=== PATIENT | female | born 1945 | race Caucasian/White ===

== ENCOUNTER 2018-11-03 16:59 | Emergency (ER) | payer MEDICARE ==
[2018-11-03 17:27] VITALS: BP 128/64
--- NOTE | 2018-11-03 17:45 | UC ---
Lower Extremity/Ankle HPI - HPI Summary HPI Summary: 73-year-old woman comes in with a chief complaint of left foot pain. Last evening she accidentally struck her foot on a solid object. Pain is primarily in the second third and fourth toes and the distal second third fourth metatarsals. Pain is worse with palpation and weightbearing's. Better with rest. No weakness or numbness no skin break. - History of Current Complaint Chief Complaint: UCLowerExtremity Stated Complaint: LEFT FOOT INJURY Time Seen by Provider: 11/03/18 17:19 Pain Intensity: 6 - Allergies/Home Medications Allergies/Adverse Reactions: Allergies Allergy/AdvReac Type Severity Reaction Status Date / Time Sulfa (Sulfonamide Allergy Hives/Diff. Verified 11/03/18 17:27 Antibiotics) Breathing/I tching Home Medications: Home Medications NK [No Home Medications Reported] 11/03/18 [History Confirmed 11/03/18] PMH/Surg Hx/FS Hx/Imm Hx Previously Healthy: Yes - Surgical History Surgical History: None Other Surgical History: LEFT FOOT OPEN FXR AND SURGICAL REPAIR A CHILD - Family History Known Family History: Positive: Non-Contributory - Social History Alcohol Use: Rare Substance Use Type: None Smoking Status (MU): Heavy Every Day Tobacco Smoker Type: Cigarettes Have You Smoked in the Last Year: Yes Household Exposure Type: Cigarettes Review of Systems All Other Systems Reviewed And Are Negative: Yes Constitutional: Positive: Negative Skin: Positive: Bruising - LEFT FOOT Eyes: Positive: Negative ENT: Positive: Negative Respiratory: Positive: Negative Cardiovascular: Positive: Negative Gastrointestinal: Positive: Negative Motor: Positive: Negative Neurovascular: Positive: Negative Musculoskeletal: Positive: Other: - SEE HPI Neurological: Positive: Negative Psychological: Positive: Negative Is Patient Immunocompromised?: No Physical Exam Triage Information Reviewed: Yes Appearance: Well-Appearing, No Pain Distress, Well-Nourished Vital Signs: Initial Vital Signs Temp 97.9 F 11/03/18 17:20 Pulse 75 11/03/18 17:20 Resp 16 11/03/18 17:20 BP 128/64 11/03/18 17:20 Pulse Ox 97 11/03/18 17:20 Vital Signs Reviewed: Yes Eye Exam: Normal Eyes: Positive: Conjunctiva Clear Neck: Positive: Supple Respiratory: Positive: No respiratory distress Musculoskeletal: Positive: Other: - Distal left foot is tender to palpation over the second third fourth toes and metatarsals. There is some ecchymosis. Normal capillary refill normal sensation and normal dorsalis pedis pulse. Ankle is full range of motion and nontender. Neurological: Positive: Alert, Muscle Tone Normal Psychological Exam: Normal Psychological: Positive: Normal Response To Family, Age Appropriate Behavior Skin: Positive: Other - Ecchymosis distal left foot on the dorsum Lower Extremity Course/Dx - Course Course Of Treatment: Patient Name: STEVE VELÁSQUEZ Medical Record#: [id number] Ordering Physician: Joe Allen MD Acct.#: [id number] : 1945 Age: 73 Sex: F Location: [facility] [place] Exam Date: 11/03/181725 ADM Status: REG ER Order Information: FOOT LEFT 3+ VWS Accession Number: [id number] CPT: 34886 Indication: Left metatarsal pain. 3 views of the left foot demonstrates oblique fracture through the proximal phalanx of the third digit. No other fractures are identified. IMPRESSION: Oblique fracture of the shaft of the proximal phalanx of the third digit. <Electronically signed by Ute Bateman MD in OV> 11/03/181738 I discussed the x-rays with the patient and her daughter. Postop shoe was placed by nursing and clinic patient neurovascular intact after placement of the postop shoe. I'll the eyes anti-inflammatories protecting it and following up with orthopedics. - Differential Dx/Diagnosis Provider Diagnosis: Toe fracture, left Discharge - Sign-Out/Discharge Documenting (check all that apply): Patient Departure All imaging exams completed and their final reports reviewed: Yes - Discharge Plan Condition: Stable Disposition: HOME Patient Education Materials: Toe Fracture (ED) Referrals: Perlita Hernandez MD [Primary Care Provider] - Rhett Kenney MD [Medical Doctor] - Additional Instructions: FOLLOW UP WITH ORTHOPEDICS. GET REEVALUATED SOONER IF WORSE OR ANY QUESTIONS OR CONCERNS. - Billing Disposition and Condition Condition: STABLE Disposition: Home
== END 2018-11-03 18:03 | disposition home or self-care (01) ==
LOC: UCCORT 16:59
DX: S92.512A Displaced fracture of proximal phalanx of left lesser toe(s), initial encounter for closed fracture (principal); W22.8XXA Striking against or struck by other objects, initial encounter; Y92.9 Unspecified place or not applicable; F17.210 Nicotine dependence, cigarettes, uncomplicated
CPT/HCPCS: 99212; G0463